=== PATIENT | male | born 1935 | race Caucasian/White ===

== ENCOUNTER 2019-03-30 23:01 | Observation (INO) ==
[2019-03-30] MEDS ORDERED: *HR* Etomidate 20 MG/10 ML AMPUL IVP ONE (23:15)
[2019-03-30] MEDS ORDERED: 0.9 % Sodium Chloride 1,000 ML IVC ONE ×2 (23:22→23:51)
[2019-03-30] MEDS ORDERED: *HR* Midazolam HCl 2 MG/2 ML VIAL IVP ONE (23:22)
[2019-03-30] MEDS ORDERED: *HR* FentaNYL (PF) 100 MCG/2 ML VIAL ONE (23:28)
[2019-03-30] MEDS ORDERED: 0.9 % Sodium Chloride 1,000 ML ONE (23:28)
[2019-03-30] MEDS ORDERED: Norepinephrine 4 MG in D5% in Water 250 ML IVC SCH (23:32)
[2019-03-30] MEDS ORDERED: *HR* Midazolam HCl 5 MG/5 ML VIAL IVP ONE (23:33)
[2019-03-30] MEDS ORDERED: *HR* FentaNYL (PF) 100 MCG/2 ML VIAL IVP ONE ×2 (23:33→23:51)
[2019-03-30 23:37] LABS: Bilirubin,Urine Negative (Negative); Blood,Urine Negative (Negative); Clarity,Urine Clear (Clear); Color,Urine Yellow (Yellow); Glucose,Urine (UA) Normal (Normal); Ketones,Urine Negative (Negative); Leukocyte Esterase,Urine Negative (Negative); Nitrite,Urine Negative (Negative); Protein,Urine Trace mg/dL (Neg-Trace); Specific Gravity,Urine 1.021 (1.010-1.025); Urobilinogen,Urine Normal (Normal)
[2019-03-30 23:44] LABS: Basophils # 0.1 K/mcL (0.0-0.2); Basophils % 0.3 %; Eosinophils # 0.2 K/mcL (0.0-0.6); Eosinophils % 1.2 %; Hematocrit 36.2 % (37.5-50.1); Immature Granulocytes % 22.6 % (0-4); Lymphocytes # 1.5 K/mcL (0.6-4.6); Lymphocytes % 8.2 %; Mean Corpuscular HGB Conc 30.4 g/dL (31.6-35.5); Mean Corpuscular Volume 95.5 fL (83.0-100.0); Mean Platelet Volume 11.5 fL (9.4-12.4); Monocytes # 1.1 K/mcL (0.0-1.3); Monocytes % 6.2 %; Neutrophils # 11.1 K/mcL (1.6-8.9); Nucleated Red Blood Cells 0.6 /100 WBC (0); Platelet Count 184 K/mcL (140-400); Red Blood Count 3.79 M/mcL (4.19-5.50); Red Cell Distribution Width 18.2 % (11.5-14.5); Segmented Neutrophils % 61.5 %
[2019-03-30 23:45] LABS: INR 1.3; Prothrombin Time 14.3 Seconds (9.4-12.1)
[2019-03-30] MEDS: FentaNYL (PF) 1,000 MCG in 0.9 % Sodium Chloride 80 ML IVC SCH (23:50)
[2019-03-30] MEDS ORDERED: Furosemide 40 MG/4 ML VIAL IVP ONE (23:56)
[2019-03-30] MEDS ORDERED: levoFLOXacin 500 MG/100 ML 500 MG/100 ML BAG IVPB ONE (23:56)
[2019-03-30] MEDS ORDERED: Piperacillin/Tazobactam 3.375 GM in 0.9 % Sodium Chloride Mini Bag 100 ML IVPB ONE (23:56)
[2019-03-31 00:03] LABS: Alanine Aminotransferase 34 Units/L (7-52); Albumin 3.1 g/dL (3.5-5.7); Alkaline Phosphatase 134 Units/L (34-104); Aspartate Amino Transferase 35 Units/L (13-39); BUN/Creatinine Ratio 34 (6-26); Bilirubin,Total 0.8 mg/dL (0.3-1.0); Blood Urea Nitrogen 44 mg/dL (8-23); Calcium 7.8 mg/dL (8.6-10.3); Carbon Dioxide 24 mEq/L (23-29); Chloride 96 mEq/L (98-107); Globulin 3.2 g/dL (2.4-3.5); Glucose 325 mg/dL (70-105); Magnesium 2.1 mg/dL (1.6-2.6); Osmolality,Calculated 298 (280-300); Sodium 132 mEq/L (136-145); Total Protein 6.3 g/dL (6.4-8.9); Troponin I < 0.03 ng/mL (< 0.04); eGFR For African Americans > 60 (> 60); eGFR For Non-African Americans 53 (> 60)
[2019-03-31 00:10] LABS: Platelet Estimate Normal (Normal)
[2019-03-31] MEDS ORDERED: Insulin Human Regular 10 UNIT in 0.9 % Sodium Chloride 10 ML IV ONE (00:10)
[2019-03-31] MEDS ORDERED: Calcium Chloride 1,000 MG in 0.9 % Sodium Chloride 100 ML IVPB ONE (00:10)
[2019-03-31 00:21] LABS: ABG Base Excess -4 mEq/L (-2 to 3); ABG HCO3 27 mEq/L (21-27); ABG Oxygen Saturation 74 % (95-98); ABG PCO2 86 mmHg (35-45); ABG PH 7.11 pH Units (7.32-7.45); ABG PO2 54 mmHg (85-104); ABG TCO2 30 mEq/L (20-26)
[2019-03-31] MEDS ORDERED: levoFLOXacin 750 MG/150 ML 750 MG/150 ML BAG IVPB ONE (00:30)
[2019-03-31] MEDS: FentaNYL (PF) 1,000 MCG in 0.9 % Sodium Chloride 80 ML IVC SCH (00:59)
[2019-03-31] MEDS ORDERED: Atropine Sulfate 1% 40 DROP/2 ML BOTTLE SL PRN (01:10)
[2019-03-31] MEDS ORDERED: *HR* FentaNYL (PF) 100 MCG/2 ML VIAL IVP PRN (01:14)
[2019-03-31] MEDS ORDERED: *HR* LORazepam 2 MG/ML VIAL IVP PRN (01:14)
[2019-03-31] MEDS ORDERED: *HR* LORazepam 2 MG/ML VIAL IVP ONE (01:15)
[2019-03-31] MEDS ORDERED: *HR* FentaNYL (PF) 100 MCG/2 ML VIAL IVP ONE (01:15)
[2019-03-31] MEDS ORDERED: Haloperidol Lactate 5 MG/ML VIAL IVP PRN (01:17)
[2019-03-31] MEDS ORDERED: Scopolamine Patch 1.5 MG PATCH.TD72 TD ONE (01:19)
[2019-03-31 01:51] VITALS: BP 130/64
[2019-03-31] MEDS ORDERED: *HR* Midazolam HCl 2 MG/2 ML VIAL IV ONE (05:04)
[2019-03-31] MEDS ORDERED: *HR* Etomidate 20 MG/10 ML AMPUL IVP ONE (05:04)
[2019-03-31] MEDS ORDERED: *HR* Midazolam HCl 5 MG/5 ML VIAL IVP ONE (05:04)
[2019-03-31] MEDS ORDERED: *HR* EPINEPHrine 1 MG/10 ML SYRINGE IVP ONE (05:04)
[2019-03-31] MEDS ORDERED: *HR* Norepinephrine 4 MG/4 ML VIAL IVC ONE (05:04)
== END 2019-03-31 05:05 | disposition expired ==
LOC: ICNU 23:01 → EMEROOARM 23:01 → 2ANU 03-31 01:48
PROVIDERS: ADMIT Internal Medicine; ATTEND Internal Medicine